=== PATIENT | female | born 1960 | race African-American/Black ===

== ENCOUNTER 2017-07-09 19:24 | Emergency (ER) | payer MEDICAID ==
[~2017-07-09] VITALS: Ht 180.3 cm; Wt 96.0 kg
[~2017-07-09 19:24] MED LIST: AMLO10TA2 PO; BROM5CAP PO; CLON0.3T PO; DOCU100C15 PO; HYDR-4107 PO; LIPI20TA PO; LOSA100T PO; METF500T PO; MIRA33504 PO; POLY17S PO; PROM12.54 PO
[2017-07-09 19:52] VITALS: BP 137/84; PULSE 97; RESP 17; TEMP 98.2; O2SAT 98
--- NOTE | 2017-07-09 20:36 | RADRPT ---
EXAM DATE/TIME: 07/09/2017 20:13 [facility] COMPARISON: No previous studies available for comparison. INDICATIONS : Cough and congestion. MEDICAL HISTORY : Hypertension. Cardiovascular disease. Diverticulitis. Asthma. SURGICAL HISTORY : Cholecystectomy. Colon resection. ENCOUNTER: Initial ACUITY: 3 days PAIN SCORE: 0/10 LOCATION: Bilateral chest FINDINGS: PA and lateral views of the chest demonstrate the lungs to be symmetrically aerated without evidence of mass, infiltrate or effusion. The cardiomediastinal contours are unremarkable. Osseous structure s are intact. CONCLUSION: No acute disease. Noah Henderson MD on July 09, 2017 at 20:34 Board Certified Radiologist. This report was verified electronically.
[2017-07-09 21:39] VITALS: BP 161/97; PULSE 90; RESP 18; O2SAT 96
[2017-07-09] MEDS ORDERED: LEVA500T33 PO (22:25)
[2017-07-09] MEDS ORDERED: ALBUAER3 INH (22:25)
--- NOTE | 2017-07-09 22:27 | PD ---
HPI Chief Complaint: Cold / Flu Symptoms Time Seen by Provider: 22:24 Travel History International Travel<30 days: No Contact w/Intl Traveler<30days: No Traveled to known affect area: No History of Present Illness HPI 56-year-old female presents to the emergency department for several days of sinus congestion sinus drainage cough and yellow sputum with intermittent tinges of blood. Patient states she has asthma and is out of her inhaler. Patient does not think she has had fever. Patient has been exposed to family members with similar respiratory illness. Patient denies any current shortness of breath but has had some intermittent wheezing. No chest pain. No abdominal pain. Patient denies hematemesis coffee-ground emesis melena hematochezia. Patient said no urinary symptoms. Patient is diabetic is being followed by her primary care provider. Patient has appointment with her primary next week. Patient has had no dizziness near syncope or syncope. Patient denies other concerns or complaints. 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) Immunizations Current: Yes Myocardial Infarction: No Tetanus Vaccination: < 5 Years Influenza Vaccination: Yes Menopausal: Yes : 3 Para: 2 : 1 Tubal Ligation: Yes Past Surgical History Abdominal Surgery: Yes (COLON RESECTION- STATES NO CANCER "BIG LUMPS") Cholecystectomy: Yes (2001) Coronary Artery Bypass Graft: No Social History Alcohol Use: No Tobacco Use: No Substance Use: No Allergies-Medications (Allergen,Severity, Reaction): Coded Allergies: azithromycin (Unverified Allergy, Severe, DIARRHEA, 10/19/16) penicillin G (Unverified Allergy, Severe, RASH, 10/19/16) Reported Meds & Prescriptions Reported Meds & Active Scripts Active Proair Hfa 8.5 GM Inh (Albuterol Sulfate) 90 Mcg/Act Aer 2 Puff INH Q4-6H PRN 108 mcg/actuation Levaquin (Levofloxacin) 500 Mg Tablet 500 Mg PO DAILY 7 Days Lipitor (Atorvastatin Calcium) 20 Mg Tab 20 Mg PO HS Clonidine (Clonidine HCl) 0.3 Mg Tab 0.3 Mg PO BID Losartan (Losartan Potassium) 100 Mg Tab 100 Mg PO DAILY Amlodipine (Amlodipine Besylate) 10 Mg Tab 10 Mg PO DAILY Metformin (Metformin HCl) 500 Mg Tab 500 Mg PO BIDPC With meals Reported Polyethylene Glycol 3350 Powder (Polyethylene Glycol) 17 Gm Pow 17 Gm PO DAILY Promethazine (Promethazine HCl) 12.5 Mg Tab 12.5 Mg PO SHEFALI PRN Bromocriptine (Bromocriptine Mesylate) 5 Mg Cap 5 Mg PO DAILY Miralax Powder (Polyethylene Glycol 3350 Powder) 17 Gm Powd 17 Gm PO DAILY Mix and dissolve one measuring cap-ful (17 grams) in water or juice. Hydrocodone-Acetaminophen 5-300 Mg Tab 1 Tab PO Q6H PRN Docusate Sodium 100 Mg Cap 100 Mg PO BID Review of Systems Except as stated in HPI: all other systems reviewed are Neg General / Constitutional: Positive: Chills, No: Fever HENT: Positive: Congestion, No: Sore Throat, Other Cardiovascular: No: Chest Pain or Discomfort Respiratory: Positive: Cough, Wheezing, No: Shortness of Breath Gastrointestinal: No: Nausea, Vomiting, Abdominal Pain Genitourinary: No: Frequency, Dysuria Musculoskeletal: No: Myalgias, Arthralgias Skin: No Rash Neurologic: No: Weakness Psychiatric: No: Anxiety Endocrine: No: Polyuria, Polydipsia Hematologic/Lymphatic: No: Lymph Node Enlargement Physical Exam Narrative GENERAL: Well-developed well-nourished pleasant female no acute distress no respiratory distress SKIN: Warm and dry. HEAD: Normocephalic. EYES: No scleral icterus. No injection or drainage. NECK: Supple, trachea midline. No JVD or lymphadenopathy. CARDIOVASCULAR: Regular rate and rhythm without murmurs, gallops, or rubs. RESPIRATORY: Breath sounds equal bilaterally. No accessory muscle use. GASTROINTESTINAL: Abdomen soft, non-tender, nondistended. MUSCULOSKELETAL: No cyanosis, or edema. BACK: Nontender without obvious deformity. No CVA tenderness. Data Data Last Documented VS Vital Signs Date Time Temp Pulse Resp B/P (MAP) Pulse Ox O2 Delivery O2 Flow Rate FiO2 07/09/17 23:08 07/09/17 21:39 90 18 96 Room Air 07/09/17 19:52 98.2 Orders Orders Chest, Pa & Lat (07/09/17 ) Ed Discharge Order (07/09/17 22:48) MDM Medical Decision Making Medical Screen Exam Complete: Yes Emergency Medical Condition: Yes Medical Record Reviewed: Yes Interpretation(s) Last Impressions Chest X-Ray 07/09/17 0000 Signed Impressions: Service Date/Time: Sunday, July 09, 2017 20:13 - CONCLUSION: No acute disease. Noah Henderson MD Vital Signs Date Time Temp Pulse Resp B/P (MAP) Pulse Ox O2 Delivery O2 Flow Rate FiO2 07/09/17 21:39 90 18 161/97 (118) 96 Room Air 07/09/17 19:52 98.2 97 17 137/84 (101) 98 Differential Diagnosis Cough, hemoptysis, bronchitis, pneumonia, sinusitis, PE, malignancy, TB Narrative Course Chest x-ray reveals no lobar infiltrate; patient feels clinically improved with report of cough productive of yellow sputum with streaks of blood with known history of asthma and prior bronchitis with recent exposure to respiratory illness. Patient states no weight loss no polyuria no polydipsia polyphagia feels blood sugars well-controlled does not want any testing done besides chest x-ray. Patient is candidate for antibiotic coverage for acute bronchitis and will refill prescription for albuterol inhaler. Patient stable for outpatient management at this time. Diagnosis Primary Impression: Bronchitis Referrals: Primary Care Physician 3 days Patient Instructions: General Instructions Additional Instructions: Follow-up with your primary care provider as planned Complete course of antibiotic as prescribed Increase fluid hydration Use inhaler as prescribed as needed Take acetaminophen/Tylenol as needed for fever 100.4F or greater Med/Other Pt SpecificInfo: Prescription(s) given Scripts Albuterol 8.5 GM Inh (Proair Hfa 8.5 GM Inh) 90 Mcg/Act Aer 2 PUFF INH Q4-6H Y for SHORTNESS OF BREATH, #1 INHALER 0 Refills 108 mcg/actuation Prov: Rebecca Gillis MD 07/09/17 Levofloxacin (Levaquin) 500 Mg Tablet 500 MG PO DAILY for Infection for 7 Days, #7 TAB 0 Refills Prov: Rebecca Gillis MD 07/09/17 Disposition: 01 DISCHARGE HOME Condition: Stable Rebecca Gillis MD July 09, 2017 22:27
== END 2017-07-09 23:08 | disposition home or self-care (01) ==
LOC: NEPC 19:24
DX: J40 Bronchitis, not specified as acute or chronic (principal); J45.909 Unspecified asthma, uncomplicated; I10 Essential (primary) hypertension; E78.00 Pure hypercholesterolemia, unspecified; E11.9 Type 2 diabetes mellitus without complications; K21.9 Gastro-esophageal reflux disease without esophagitis; Z87.19 Personal history of other diseases of the digestive system; Z79.899 Other long term (current) drug therapy; Z88.0 Allergy status to penicillin
CPT/HCPCS: 71046; 99283

== ENCOUNTER 2017-07-18 09:34 | Emergency (ER) | payer MEDICAID ==
[~2017-07-18] VITALS: Ht 180.3 cm; Wt 96.0 kg
[~2017-07-18 09:34] MED LIST changes: +ALBUAER3 INH; +LEVA500T33 PO
[2017-07-18 09:41] VITALS: BP 126/75; PULSE 67; RESP 18; TEMP 98.2; O2SAT 97
[2017-07-18 09:51] VITALS: BP 126/75; PULSE 67; RESP 18; TEMP 98.2; O2SAT 97
[2017-07-18] MEDS: RESP: ALBUTEROL 2.5 MG/IPRATROPIUM 0.5 MG NEB (SCH) INH (10:15)
[2017-07-18] MEDS ORDERED: predniSONE 20 MG TAB PO ONE (10:15)
--- NOTE | 2017-07-18 10:32 | RADRPT ---
EXAM DATE/TIME: 07/18/2017 10:09 [facility] COMPARISON: No previous studies available for comparison. INDICATIONS : Shortness of breath. MEDICAL HISTORY : Hypertension. Cardiovascular disease. Diverticulitis. Asthma. SURGICAL HISTORY : Cholecystectomy. Colon resection. ENCOUNTER: [facility] ACUITY: 2 weeks PAIN SCORE: 8/10 LOCATION: Bilateral chest FINDINGS: A single view of the chest demonstrates the lungs to be symmetrically aerated without evidence of mas s, infiltrate or effusion. The cardiomediastinal contours are unremarkable. Osseous structures are intact. CONCLUSION: 1. No acute cardiopulmonary disease. Dmitry Sandoval MD on July 18, 2017 at 10:30 Board Certified Radiologist. This report was verified electronically.
[2017-07-18] MEDS ORDERED: PRED-503 PO (10:51)
[2017-07-18] MEDS ORDERED: BENZ100 PO (10:51)
--- NOTE | 2017-07-18 10:52 | PD ---
HPI Chief Complaint: Cold / Flu Symptoms Time Seen by Provider: 09:49 Travel History International Travel<30 days: No Contact w/Intl Traveler<30days: No Traveled to known affect area: No History of Present Illness HPI 56-year-old female presents to the emergency department with complaint of continued cough 1 weeks. She was seen here on July 09 and diagnosed with bronchitis and was given albuterol inhaler, and Levaquin, which she has finished the prescription of Levaquin without relief of symptoms. She reports history of asthma. Says she has also had a sore throat 1 week, secondary to coughing. Reports productive cough. Reports feeling short of breath and wheezy. Denies chest pain. Denies fevers. Has been using her granddaughter's albuterol nebulizers, and does not know the dosage, with relief of symptoms 1 hour. No known aggravating factors. Symptoms are mild to moderate in severity. Primary care provider is rust. Has an appointment with PCP at the end of the month. Allergies to penicillins and azithromycin. History of diabetes mellitus type 2 takes oral hypoglycemics, increased cholesterol, pituitary tumor, asthma. Has no other medical complaints. No other modifying factors or associated signs and symptoms. 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) Immunizations Current: Yes Myocardial Infarction: No Tetanus Vaccination: < 5 Years Influenza Vaccination: Yes ?: Not Menopausal: Yes : 3 Para: 2 : 1 Tubal Ligation: Yes Past Surgical History Abdominal Surgery: Yes (COLON RESECTION- STATES NO CANCER "BIG LUMPS") Cholecystectomy: Yes (2001) Coronary Artery Bypass Graft: No Family History Family Myocardial Infarction: No Social History Alcohol Use: No Tobacco Use: No Substance Use: No Allergies-Medications (Allergen,Severity, Reaction): Coded Allergies: azithromycin (Unverified Allergy, Severe, DIARRHEA, 07/18/17) penicillin G (Unverified Allergy, Severe, RASH, 07/18/17) Reported Meds & Prescriptions Reported Meds & Active Scripts Active Tessalon Perles (Benzonatate) 100 Mg Cap 100 Mg PO TID PRN 3 Days Deltasone (Prednisone) 20 Mg Tab 40 Mg PO DAILY 4 Days start 07/19/2017 Proair Hfa 8.5 GM Inh (Albuterol Sulfate) 90 Mcg/Act Aer 2 Puff INH Q4-6H PRN 108 mcg/actuation Lipitor (Atorvastatin Calcium) 20 Mg Tab 20 Mg PO HS Clonidine (Clonidine HCl) 0.3 Mg Tab 0.3 Mg PO BID Losartan (Losartan Potassium) 100 Mg Tab 100 Mg PO DAILY Amlodipine (Amlodipine Besylate) 10 Mg Tab 10 Mg PO DAILY Metformin (Metformin HCl) 500 Mg Tab 500 Mg PO BIDPC With meals Reported Polyethylene Glycol 3350 Powder (Polyethylene Glycol) 17 Gm Pow 17 Gm PO DAILY Promethazine (Promethazine HCl) 12.5 Mg Tab 12.5 Mg PO SHEFALI PRN Bromocriptine (Bromocriptine Mesylate) 5 Mg Cap 5 Mg PO DAILY Hydrocodone-Acetaminophen 5-300 Mg Tab 1 Tab PO Q6H PRN Docusate Sodium 100 Mg Cap 100 Mg PO BID Review of Systems Except as stated in HPI: all other systems reviewed are Neg Physical Exam Narrative GENERAL: Well-nourished, well-developed black patient, in no acute distress; afebrile, nontoxic-appearing SKIN: Warm and dry. HEAD: Atraumatic. Normocephalic. EYES: Pupils equal and round. No scleral icterus. No injection or drainage. ENT: Mucosa pink and moist. No erythema or exudates. No uvular edema. No uvular , palatal, or tonsillar deviation. Airway patent. EARS: Bilateral pinnae and external canals appear within normal limits. Bilateral tympanic membranes without erythema, dullness or perforation. NECK: Trachea midline. No lymphadenopathy. CARDIOVASCULAR: Regular rate and rhythm. No murmur appreciated. RESPIRATORY: No accessory muscle use. Lungs with Wheezing throughout to auscultation. Breath sounds equal bilaterally. No retractions or tachypnea. No Audible wheezing noted. GASTROINTESTINAL: Abdomen soft, non-tender, nondistended. Hepatic and splenic margins not palpable. Bowel sounds are active 4 quadrants. MUSCULOSKELETAL: No obvious deformities. No clubbing. No cyanosis. No edema. NEUROLOGICAL: Awake and alert. Oriented 3. No obvious cranial nerve deficits. Motor grossly within normal limits. Normal speech. Moves all extremities. 5/5 strength to all extremities. PSYCHIATRIC: Appropriate mood and affect; insight and judgment normal. Data Data Last Documented VS Vital Signs Date Time Temp Pulse Resp B/P (MAP) Pulse Ox O2 Delivery O2 Flow Rate FiO2 07/18/17 11:02 07/18/17 09:51 98.2 67 18 97 Room Air Orders Orders Chest, Single Ap (07/18/17 10:01) Prednisone (Deltasone) (07/18/17 10:15) Albuterol-Ipratropium Neb (Duoneb Neb) (07/18/17 10:15) Ed Discharge Order (07/18/17 10:55) [facility] Medical Decision Making Medical Screen Exam Complete: Yes Emergency Medical Condition: Yes Medical Record Reviewed: Yes Differential Diagnosis Asthma exacerbation, acute bronchitis, viral illness, pneumonia Narrative Course 56-year-old female, with history of asthma, presents with continued cough 1 week. She was seen here on July 09 for acute bronchitis, and was given albuterol inhaler and Levaquin. She has finished the Levaquin with continued cough. She is in no acute respiratory distress. No retractions or tachypnea. No audible wheezing. Lungs with wheezing throughout on auscultation. Oxygen saturation is 97% on room air. DuoNeb 3, chest x-ray, Deltasone ordered. 1050: Chest x-ray conclude: Chest X-Ray 07/18/17 1001 Signed Impressions: Service Date/Time: Tuesday, July 18, 2017 10:09 - CONCLUSION: 1. No acute cardiopulmonary disease. Dmitry Sandoval MD Discussed chest x-ray findings with the patient. Patient reports improvement in symptoms on reevaluation. Denies chest tightness, shortness of breath. Minimal wheezing noted on auscultation on reevaluation, with improved lung sounds from initial assessment. Patient is in no acute distress. With report of improvement in symptoms the patient feels comfortable and I feel comfortable discharging the patient home. No hypoxia. Sebastian Durham prescribed for home. Patient has a prescription for albuterol inhaler, from her last visit. Instructed patient to follow up with primary care provider. Patient verbalizes understanding and agreement with treatment plan. Patient is medically cleared and stable for discharge. Discussed reasons to return to the emergency department. Patient agrees with treatment plan. The patients vital signs are stable and the patient is stable for outpatient follow-up and treatment. Patient discharged home, stable and in no acute distress. Diagnosis Primary Impression: Acute bronchitis Qualified Codes: J20.9 - Acute bronchitis, unspecified Referrals: [facility] Primary Care Physician Patient Instructions: Acute Bronchitis (ED), General Instructions Additional Instructions: Use Albuterol inhaler as prescribed Take oral steroids as prescribed and complete full course Use Tessalon Perles as prescribed to decrease coughing spasms Faks-[id number]-[id number] decongestants or antihistamines as directed and as needed for symptom management Drink plenty of fluids to prevent dehydration Use hot air humidifier to decrease cough exacerbation Turn off ceiling fans and sleep with head of bed elevated Avoid triggers such as second hand smoke, dust, known allergens Follow-up with your primary care provider Return to the emergency department immediately with worsening of symptoms Med/Other Pt SpecificInfo: Prescription(s) given Scripts Benzonatate (Tessalon Perles) 100 Mg Cap 100 MG PO TID Y for COUGH for 3 Days, CAP 0 Refills Prov: Edwige Barrera 07/18/17 Prednisone (Deltasone) 20 Mg Tab 40 MG PO DAILY for 4 Days, #8 TAB 0 Refills start 07/19/2017 Prov: Edwige Barrera 07/18/17 Disposition: 01 DISCHARGE HOME Condition: Stable Edwige Barrera July 18, 2017 10:52
== END 2017-07-18 11:07 | disposition home or self-care (01) ==
LOC: NEPD 09:34
DX: J20.9 Acute bronchitis, unspecified (principal); E11.9 Type 2 diabetes mellitus without complications; E78.00 Pure hypercholesterolemia, unspecified; I10 Essential (primary) hypertension; Z79.84 Long term (current) use of oral hypoglycemic drugs
CPT/HCPCS: 71045; 94640; 94664; 99283; J7512

== ENCOUNTER 2017-07-31 00:16 | Emergency (ER) | payer MEDICAID ==
[~2017-07-31] VITALS: Ht 180.3 cm; Wt 95.0 kg
[~2017-07-31 00:16] MED LIST changes: +BENZ100 PO; -LEVA500T33 PO; -MIRA33504 PO; +PRED-503 PO
[2017-07-31 00:19] VITALS: BP 131/92; PULSE 107; RESP 18; TEMP 97.8; O2SAT 100
[2017-07-31] MEDS ORDERED: DEXAMETHASONE SOD PHOS 20 MG/5 ML VIAL IV PUSH ONE (01:00)
[2017-07-31] MEDS ORDERED: RESP: ALBUTEROL 2.5 MG/IPRATROPIUM 0.5 MG NEB (SCH) NEB ONE (01:00)
[2017-07-31] MEDS: MAGNESIUM SULFATE 1 GM PREMIX 100 ML IV SCH ×2 (01:20→02:15)
--- NOTE | 2017-07-31 01:59 | RADRPT ---
EXAM DATE: 07/31/2017 1:52 AM EDT AGE/SEX: 56 years / Female INDICATIONS: Cough. CLINICAL DATA: This is the patient's initial encounter. Patient reports that signs and symptoms have been present for 1 day and indicates a pain score of 0/10. MEDICAL/SURGICAL HISTORY: None. Colon resection. COMPARISON: [facility], CHEST PA & LAT, 07/09/2017. . FINDINGS: PA and lateral views of the chest demonstrate the lungs to be symmetrically aerated without evidence of mass, infiltrate or effusion. The cardiomediastinal contours are unremarkable. Osseous structures are intact. CONCLUSION: No evidence of acute cardiopulmonary disease. Electronically signed by: Rohan Hernandez MD 07/31/2017 1:58 AM EDT
[2017-07-31 02:17] VITALS: BP 137/76; PULSE 89; RESP 18; O2SAT 98
--- NOTE | 2017-07-31 03:44 | PD ---
HPI Chief Complaint: Respiratory Symptoms Time Seen by Provider: 00:24 Travel History International Travel<30 days: No Contact w/Intl Traveler<30days: No Traveled to known affect area: No History of Present Illness HPI 56-year-old female with 2 week history of cough. Patient states that she was treated with a course of Levaquin for 7 days 1 week ago but has been coughing persistently since. She is unable to rest because of the cough. She denies fever. She denies recent travel. She denies exposure. 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) Immunizations Current: Yes Myocardial Infarction: No Tetanus Vaccination: < 5 Years Influenza Vaccination: Yes ?: Not LMP: menapause Menopausal: Yes : 3 Para: 2 : 1 Tubal Ligation: Yes Past Surgical History Abdominal Surgery: Yes (COLON RESECTION- STATES NO CANCER "BIG LUMPS") Cholecystectomy: Yes (2001) Coronary Artery Bypass Graft: No Social History Alcohol Use: No Tobacco Use: No Substance Use: No Allergies-Medications (Allergen,Severity, Reaction): Coded Allergies: azithromycin (Unverified Allergy, Severe, DIARRHEA, 07/31/17) penicillin G (Unverified Allergy, Severe, RASH, 07/31/17) Reported Meds & Prescriptions Reported Meds & Active Scripts Active Tessalon Perles (Benzonatate) 100 Mg Cap 100 Mg PO TID PRN 3 Days Proair Hfa 8.5 GM Inh (Albuterol Sulfate) 90 Mcg/Act Aer 2 Puff INH Q4-6H PRN 108 mcg/actuation Lipitor (Atorvastatin Calcium) 20 Mg Tab 20 Mg PO HS Clonidine (Clonidine HCl) 0.3 Mg Tab 0.3 Mg PO BID Losartan (Losartan Potassium) 100 Mg Tab 100 Mg PO DAILY Amlodipine (Amlodipine Besylate) 10 Mg Tab 10 Mg PO DAILY Metformin (Metformin HCl) 500 Mg Tab 500 Mg PO BIDPC With meals Reported Polyethylene Glycol 3350 Powder (Polyethylene Glycol) 17 Gm Pow 17 Gm PO DAILY Promethazine (Promethazine HCl) 12.5 Mg Tab 12.5 Mg PO SHEFALI PRN Bromocriptine (Bromocriptine Mesylate) 5 Mg Cap 5 Mg PO DAILY Hydrocodone-Acetaminophen 5-300 Mg Tab 1 Tab PO Q6H PRN Docusate Sodium 100 Mg Cap 100 Mg PO BID Review of Systems Except as stated in HPI: all other systems reviewed are Neg General / Constitutional: No: Fever, Chills Cardiovascular: No: Chest Pain or Discomfort Respiratory: Positive: Cough, No: Shortness of Breath Skin: No Rash Physical Exam Narrative GENERAL: 56-year-old female coughing in mild distress secondary to the coughing SKIN: Focused skin assessment warm/dry. HEAD: Atraumatic. Normocephalic. EYES: Pupils equal and round. No scleral icterus. No injection or drainage. ENT: No nasal bleeding or discharge. Mucous membranes pink and moist. NECK: Trachea midline. No JVD. CARDIOVASCULAR: Regular rate and rhythm. No murmur appreciated. RESPIRATORY: Scattered rhonchi bilaterally unable to breathe deeply without coughing GASTROINTESTINAL: Abdomen soft, non-tender, nondistended. Hepatic and splenic margins not palpable. MUSCULOSKELETAL: No obvious deformities. No clubbing. No cyanosis. No edema. Data Data Last Documented VS Vital Signs Date Time Temp Pulse Resp B/P (MAP) Pulse Ox O2 Delivery O2 Flow Rate FiO2 07/31/17 02:17 89 18 137/76 (96) 98 Room Air 07/31/17 00:19 97.8 Orders Orders Dexamethasone Inj (Decadron Inj) (07/31/17 01:00) Magnesium Sulfate 1 Gm Premix (Magnesium (07/31/17 01:00) Albuterol-Ipratropium Neb (Duoneb Neb) (07/31/17 01:00) Chest, Pa & Lat (07/31/17 ) Labs Last 24 hours Impressions Chest X-Ray 07/31/17 0000 Signed Impressions: CONCLUSION: No evidence of acute cardiopulmonary disease. MDM Medical Decision Making Medical Screen Exam Complete: Yes Emergency Medical Condition: Yes Differential Diagnosis Bronchospasm, bronchitis Narrative Course Patient seen and evaluated in the emergency department. She is given Decadron IV as well as magnesium sulfate. She was also given a DuoNeb while in the department. Patient states that she feels great and was actually able to catch a nap while awaiting discharge. She will follow-up with her primary care physician or return to the ER with any concerns Diagnosis Primary Impression: Cough Additional Impression: Bronchospasm Patient Instructions: Chronic Cough (DC), General Instructions Disposition: 01 DISCHARGE HOME Condition: Good Houston Skinner DO July 31, 2017 03:44
== END 2017-07-31 04:03 | disposition home or self-care (01) ==
LOC: NEPC 00:16
DX: J45.909 Unspecified asthma, uncomplicated (principal); E11.9 Type 2 diabetes mellitus without complications; E78.00 Pure hypercholesterolemia, unspecified; I10 Essential (primary) hypertension; Z79.84 Long term (current) use of oral hypoglycemic drugs
CPT/HCPCS: 71046; 94664; 96365; 96375; 99284; J1100; J3475